=== PATIENT | male | born 1955 | race Caucasian/White ===

== ENCOUNTER 2020-02-28 23:17 | Emergency (ER) | payer MEDICARE, SELFPAY ==
--- NOTE | ~2020-02-28 | CT_ITS ---
EXAMINATION: CT abdomen pelvis w con DATE: 02/29/2020 00:23 INDICATION: Right lower abdominal pain. TECHNIQUE: Computed tomography (CT) of the abdomen and pelvis was performed with 100 mL Omnipaque 350 intravenous contrast. Automated exposure control and iterative reconstruction technique were employe d. The dose-length product was 659.72 mGy-cm. COMPARISON: None. FINDINGS: The visualized portions of the lung bases demonstrate mild dependent atelectasis. No pleura l effusion. The heart size is normal. No pericardial effusion. There is a small sliding hiatal hernia . There is fluid in the esophagus, which may be from reflux or esophageal dysmotility. The liver, gal lbladder, spleen, pancreas, and adrenal glands are normal. There is a 1 mm stone in right kidney. The re is mild right hydronephrosis. There is a 6 mm stone in proximal right ureter. There are cysts in l eft kidney measuring up to 5 mm. The prostate is mildly enlarged. There is a right inguinal hernia co ntaining fat. There is diverticulosis of the colon without evidence of diverticulitis. The appendix i s normal. There are no pathologically enlarged lymph nodes. There is no free intraperitoneal fluid. T here is lumbar levocurvature and mild spondylosis. IMPRESSION: 1. 6 mm stone in proximal right ureter with mild right hydronephrosis. 2. 1 mm nonobstructing right kidney stone. Reviewed, dictated and finalized at location A.
--- NOTE | ~2020-02-28 | XR_ITS ---
EXAMINATION: XR abdomen/kub 1V DATE: 02/29/2020 02:58 INDICATION: Right ureteral stone. TECHNIQUE: A supine view of the abdomen on 2 radiographs was obtained. COMPARISON: CT abdomen and pelvis 02/29/2020 FINDINGS: There are no dilated loops of bowel. There is a phlebolith in left pelvis. There is contras t in the kidneys, ureters, and bladder. There is mild right hydronephrosis. There is a 6 mm stone in proximal right ureter. IMPRESSION: 1. 6 mm stone in proximal right ureter with mild right hydronephrosis. Reviewed, dictated and finalized at location A.
[2020-02-28 23:23] VITALS: BP 171/85; PULSE 55; RESP 18; TEMP 36.4; O2SAT 97
[2020-02-28 23:32] VITALS: BP 145/99; PULSE 51; O2SAT 95
--- NOTE | 2020-02-28 23:39 | ED.ABDPAIN ---
HPI - Abdominal Pain General Chief Complaint: Abdominal Pain Stated Complaint: abd pain Time Seen by Provider: 02/28/20 23:22 Source: patient Mode of arrival: ambulatory Limitations: no limitations History of Present Illness HPI narrative: 64 yo male who presents with c/o right lower abdominal pain starting 7 pm tonight. He states his pain has been constant and progressively worsening. He has associated nausea and dizziness, but he denies fever, chills, urinary symptoms or cold symptoms. He took 2 extra strength tylenol 1 hour ago without any relief. He reports history of bilateral hernia repair but denies appendectomy in the past. MD elicited complaint: abdominal pain Onset (ago): hour(s) (4) Location: RLQ Severity: severe Radiation: none Exacerbating factors: nothing Relieving factors: nothing Associated symptoms: nausea Treatments prior to arrival: NSAIDs (1000 mg acetaminophen) Related Data Allergies Allergy/AdvReac Type Severity Reaction Status Date / Time Penicillins Allergy Hives Verified 02/28/20 23:30 Review of Systems Review of Systems: All systems reviewed & are unremarkable except as noted in HPI and below Constitutional: Constitutional: Denies chills, Denies fever(s) and Denies weakness Cardiovascular: Cardiovascular: Denies chest pain, Denies rapid heart rate and Denies slow heart rate Respiratory: Respiratory: Denies chest congestion, Denies cough, Reports dyspnea (chronic sob for several months that is being evaluation with pulmonary) and Denies wheezing Gastrointestinal: Gastrointestinal: Reports abdominal pain, Denies bloating, Denies constipation, Denies heartburn, Denies diarrhea, Reports nausea and Denies vomiting Genitourinary: Genitourinary: Denies hematuria, Denies oliguria, Denies dysuria, Denies testicular pain and Denies urinary frequency Musculoskeletal: Musculoskeletal: Denies back pain [facility] Surgical History Surgical History (Updated 02/28/20 @ 23:44 by Frida Walsh MD) H/O bilateral inguinal hernia repair Social History Social History (Updated 02/28/20 @ 23:44 by Frida Walsh MD) Smoking status: Former smoker Tobacco type: cigarettes Gender identity (if verbalized by the patient): Male Exam Const: General: alert Orientation/consciousness: patient oriented x3 Eyes: EOM: EOMs intact bilaterally Chest: Chest palpation & inspection: normal inspection of the chest Resp: Effort & Inspection: normal respiratory effort and no retractions Auscultation: clear to auscultation bilaterally Cardio: Rate: bradycardic Rhythm: regular rhythm Heart sounds: no murmurs GI: Inspection: non-distended GI Palp: Yes Soft to palpation, Yes Tenderness to palpation present (GI) (RLQ), No Rigid due to palpation and No Hernia present Auscultation: absent bowel sounds : General: Yes no CVA tenderness Back/Spine/Pelvis: Back: no CVA tenderness Skin: General skin exam: normal color Rashes: no rashes Neuro: General: patient oriented x3 and moves all extremities Course Reevaluation(s) Reevaluation #1: PAtient still reports pain 9/10 after 1 dose of morphine and 1 dose of dilaudid. I have discussed with patient finding of kidney stone as cause of his pain. Date: 02/29/20 Time: 01:20 Reevaluation #2: PAtient is comfortable in bed. He states his pain is controlled. He is comfortable with discharge home and plan. Date: 02/29/20 Time: 03:30 Consultations Consultation #1: I Discussed case with Dr. Zelaya who states patient can be sent home with pain medication and antibiotics. He will call patient this morning to get set up for outpatient lithotripsy. Date: 02/29/20 Time: 03:27 Vital Signs Vital signs: Vital Signs Temperature 97.5 F L 02/28/20 23:23 Pulse Rate 55 L 02/28/20 23:23 Respiratory Rate 18 02/28/20 23:23 Blood Pressure 171/85 H 02/28/20 23:23 Pulse Oximetry 97 02/28/20 23:23 Temperature 97.5 F L 02/28/20 23:23 Pulse Rate 61
[2020-02-28 23:52] LABS: Hematocrit 46.8 % (42.0-52.0); Hemoglobin 15.3 g/dL (14.0-18.0); Mean Corpuscular HGB Conc 32.7 g/dl (32-36); Mean Corpuscular Hemoglobin 29.1 pg (26-34); Mean Platelet Volume 10.6 fl (7.4-10.4); Platelet Count Result 219 k/mm3 (150-375); Red Blood Count 5.26 M/mm3 (4.6-6.20); Red Cell Distribution Width 12.4 % (11.5-14.5)
[2020-02-28] MEDS: MORPHINE SULFATE 4 MG/ML INJ IV PUSH (23:52)
[2020-02-28] MEDS: ONDANSETRON INJ 4 MG/2 ML VIAL IV PUSH (23:52)
[2020-02-28] MEDS: LACTATED RINGERS 1,000 ML 999 ML IV CONT (23:52)
[2020-02-29] VITALS (7 sets, daily range): BP systolic 119–163; BP diastolic 76–96; PULSE 55–74; RESP 11–16; O2SAT 94–98
[2020-02-29] LABS: Alanine Aminotransferase 33 U/L (4-50); Albumin Level 4.3 g/dL (3.5-5.1); Alkaline Phosphatase 66 U/L (38-126); Aspartate Amino Transferase 33 U/L (17-59); Bilirubin,Total 0.4 mg/dL (0.2-1.3); Blood Urea Nitrogen 19 mg/dL (9-20); Calcium 10.1 mg/dL (8.4-10.2); Carbon Dioxide 29 mmol/L (22-30); Chloride 102 mmol/L (98-107); Estimated CRCL calculation 67 ml/min; Estimated Glomerular Filt Rate > 60; Glucose 142 mg/dL (75-110); Lipase 56 U/L (23-300); Potassium 4.1 mmol/L (3.4-5.0); Sodium 138 mmol/L (137-145)
--- NOTE | 2020-02-29 00:06 | ECG_ITS ---
Measurements Intervals [place] Rate: 42 P: 44 [place]: 164 QRS: 18 QRSD: 102 T: 50 QT: 443 QTc: 371 Interpretive Statements SINUS BRADYCARDIA ABNORMAL ECG Electronically Signed On 02-29-2020 7:21:20 CDT by Ze Zendejas D.O.
[2020-02-29] MEDS: HYDROMORPHONE HCL 1 MG/ML INJ IV PUSH ×2 (00:45→01:38)
--- NOTE | 2020-02-29 00:57 | PC.NURSE ---
attempted to straight catheterize pt for urine sample without success at this time. 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
[2020-02-29 01:01] LABS: Lymphocytes Absolute Manual 2.08 K/mm3 (1.1-4.5); Monocytes Absolute Manual 0.65 K/mm3 (0.1-0.90); Monocytes Percent Manual 5 % (3-9); Neutrophils Percent Manual 79 % (46-73); Platelet Estimate Adequate (Adequate); Total Cells Counted 100
[2020-02-29] MEDS: LACTATED RINGERS 1,000 ML 999 ML IV CONT (01:40)
[2020-02-29] MEDS: TAMSULOSIN HCL 0.4 MG CAPSULE PO (01:45)
[2020-02-29 03:02] LABS: Add Urine Microscopic? YES; Appearance Urine Clear (Clear); Bacteria Urine Trace /hpf; Bilirubin Urine Negative (Negative); Blood Urine 2+ (Negative); Color Urine Straw (Yellow); Glucose Urine UA Negative (Negative); Ketones Urine Negative (Negative); Leukocyte Esterase Ur Trace LEU/UL (Negative); Mucus Urine Rare /lpf; Nitrate Urine Negative (Negative); Protein Urine Negative (Negative); RBC Urine 51-75 /hpf (0-2); Urobilinogen Urine Negative mg/dL (<2.0)
== END 2020-02-29 03:40 | disposition home or self-care (01) ==
PROVIDERS: Emergency Provider General Practice
DX: N13.2 Hydronephrosis with renal and ureteral calculous obstruction (principal); Z87.891 Personal history of nicotine dependence
CPT/HCPCS: 36415; 51701; 74018; 74177; 80053; 81001; 83690; 85025; 87086; 93005; 96361; 96365; 96375; 96376; 99284; A9270; J0131; J1170; J2270; J2405; J7120; Q9967

== ENCOUNTER 2020-03-26 14:13 | Outpatient (CLI) | payer MEDICARE, SELFPAY ==
--- NOTE | ~2020-03-26 | XR_ITS ---
EXAMINATION: XR abdomen/kub 1V EXAM DATE: 03/26/2020 14:40 INDICATION: Right ureteral stone. TECHNIQUE: Frontal projection(s) of the abdomen for interpretation. Comparison is made to prior exami nation from 02/29/2020. FINDINGS: Can't identify the sizable right proximal ureteral stone identified on CT scan on 0. There is stool overlying the renal contours. Nonobstructive bowel gas pattern. There are mild bony degenerative changes. IMPRESSION: No suspicious calcifications identified. Reviewed, dictated and finalized at location A.
== END 2020-03-26 14:14 | disposition home or self-care (01) ==
PROVIDERS: Visit Provider Urology
DX: N20.1 Calculus of ureter (principal)
CPT/HCPCS: 74018

== ENCOUNTER 2020-11-12 13:52 | Outpatient (CLI) | payer MEDICARE, SELFPAY ==
--- NOTE | ~2020-11-12 | XR_ITS ---
EXAMINATION: XR abdomen/kub 1V INDICATION: Right ureteral stone TECHNIQUE: Supine views of the abdomen were obtained on 2 radiographs. COMPARISON: 03/26/2020 FINDINGS: Bowel contents project over the kidneys limiting sensitivity for renal stones. No definite urolithiasis is identified. There are phleboliths of the pelvis. Prostatic calcifications are noted. There is mild osteoarthritis of the hips. IMPRESSION: 1. No definite urolithiasis identified. Reviewed, dictated and finalized at location A. ONAL INJURY PARALEGAL
== END 2020-11-12 13:53 | disposition home or self-care (01) ==
LOC: ANHIMG 13:59
PROVIDERS: PCP Internal Medicine; Visit Provider Urology
DX: N20.1 Calculus of ureter (principal)
CPT/HCPCS: 74018

== ENCOUNTER 2022-12-16 12:50 | Emergency (ER) | payer MEDICARE, SELFPAY ==
--- NOTE | ~2022-12-16 | XR_ITS ---
EXAM: XR abdomen/kub 1V DATE: 12/16/2022 17:34 HISTORY: renal stone protocol . COMPARISON: CT abdomen and pelvis, same date. FINDINGS: Round opacification projecting over the left iliac wing, with no correlate in the concurre nt CT, likely artifact. Normal bowel gas pattern. No organomegaly. Delayed right nephrogram. Several calcific densities project over the right sacrum likely representing the previously detected distal u reteral stones and adjacent vascular calcification. Degenerative lumbar disc disease. Mild bilateral hip osteoarthritis. IMPRESSION: Delayed right nephrogram. Distal right ureteral stones. Please also refer to the concurre nt CT abdomen and pelvis for additional details.. Reviewed, dictated and finalized at location K. IE PADDER IMPRESSION: Delayed right nephrogram. Distal right ureteral stones. Please also refer to the concurrent CT abdomen and pelvis for additional details..
--- NOTE | ~2022-12-16 | CT_ITS ---
EXAMINATION: CT abdomen pelvis w con INDICATION: Right lower quadrant pain TECHNIQUE: Computed tomographic images of the abdomen and pelvis were obtained after the administrati on of 100 cc of Omnipaque 350 intravenous contrast. The dose-length product (DLP) was 677.97 mGy-cm. Automated exposure control and iterative reconstruction technique were employed. COMPARISON: 02/29/2020 FINDINGS: Minimal dependent atelectasis is present in the lung bases. The heart size is normal. The s tomach is moderately distended with fluid with reflux of gastric contents into the visualized distal esophagus. The liver, spleen, pancreas, gallbladder, and adrenal glands are normal. There are at leas t three right mid ureteral stones which measure up to 4 mm which cause moderate right hydroureteronep hrosis. There is reduced enhancement of the right kidney when compared to the left with surrounding p erinephric stranding. There is a 4 mm nonobstructing stone of the right kidney lower pole. There is a 9 mm cyst of the left kidney lower pole. There is calcified atherosclerosis of the aorta and many of the other arteries. No pathologically enlarged abdominal or pelvic lymph nodes are identified. There is no free intraperitoneal gas or evidence of bowel obstruction. Colonic diverticulosis is present w ithout evidence of diverticulitis. There is an approximately 2.1 x 0.8 cm area of soft tissue attenua tion wall thickening of the posterior urinary bladder near the left ureterovesicular junction. There is a right inguinal hernia containing fat. There are appendicoliths in the nondistended appendix. IMPRESSION: 1. At least three stones of the right mid ureter, measuring up to 4 mm, and causing moderate right hy droureteronephrosis. Decreased enhancement of the right kidney compared to the left and surrounding p erinephric stranding could reflect superimposed pyelonephritis. 2. Soft tissue attenuation mass of the left posterolateral bladder wall near the left ureterovesicula r junction concerning for urothelial carcinoma. Urologic evaluation and direct visualization are migel mmended. 3. Moderate distention of the stomach with fluid and reflux of gastric contents into the visualized d istal esophagus. Reviewed, dictated and finalized at location L. LE AND HEEL STIFFENER IMPRESSION: 1. At least three stones of the right mid ureter, measuring up to 4 mm, and cau sing moderate right hydroureteronephrosis. Decreased enhancement of the right k idney compared to the left and surrounding perinephric stranding could reflect superimposed pyelonephritis. 2. Soft tissue attenuation mass of the left posterolateral bladder wall near th e left ureterovesicular junction concerning for urothelial carcinoma. Urologic evaluation and direct visualization are recommended. 3. Moderate distention of the stomach with fluid and reflux of gastric contents into the visualized distal esophagus.
[2022-12-16 13:02] VITALS: BP 148/50; PULSE 54; RESP 16; TEMP 37.2; O2SAT 96
[2022-12-16 13:17] LABS: Basophils Percent Auto 0.4 % (0.2-1.2); Eosinophils Percent Auto 0.3 % (0-4.4); Hematocrit 46.7 % (42.0-52.0); Hemoglobin 15.6 g/dL (14.0-18.0); Immature Granulocyte Absolute 0.05 K/mm3 (0.00-0.031); Immature Granulocyte Percent A 0.5 % (0-0.5); Lymphocytes Absolute Auto 1.24 K/mm3 (0.9-3.2); Lymphocytes Percent Auto 11.2 % (18.3-44.2); Mean Corpuscular HGB Conc 33.4 g/dl (32-36); Mean Corpuscular Hemoglobin 29.7 pg (26-34); Mean Platelet Volume 10.5 fl (7.4-10.4); Monocytes Absolute Auto 0.4 K/mm3 (0.1-0.6); Monocytes Percent Auto 3.5 % (2.6-8.5); Neutrophils Absolute Auto 9.4 K/mm3 (1.3-6.7); Neutrophils Percent Auto 84.1 % (45.5-73.1); Platelet Count Result 241 k/mm3 (150-375); Red Blood Count 5.25 M/mm3 (4.6-6.20); Red Cell Distribution Width 12.7 % (11.5-14.5); White Blood Count 11.1 K/mm3 (4.5-10.0)
[2022-12-16 13:28] LABS: Alanine Aminotransferase 35 U/L (6-50); Albumin Level 4.2 g/dL (3.5-5.1); Alkaline Phosphatase 112 U/L (38-126); Anion Gap 8 mmol/L (8-16); Aspartate Amino Transferase 32 U/L (17-59); Bilirubin,Total 0.7 mg/dL (0.2-1.3); Blood Urea Nitrogen 22 mg/dL (9-20); Carbon Dioxide 26 mmol/L (22-30); Chloride 105 mmol/L (98-107); Estimated CRCL calculation 55 ml/min; Estimated Glomerular Filt Rate 60; Glucose 160 mg/dL (65-110); Lipase 68 U/L (23-300); Potassium 4.3 mmol/L (3.4-5.0); Sodium 139 mmol/L (137-145)
--- NOTE | 2022-12-16 14:04 | ED.ABDPAIN ---
HPI - Abdominal Pain General Chief Complaint: Abdominal Pain Stated Complaint: abdominal pain Time Seen by Provider: 12/16/22 14:03 Source: patient and family Mode of arrival: ambulatory Limitations: no limitations History of Present Illness HPI narrative: Patient is a 66-year-old male presenting to the emergency department for evaluation of right lower quadrant abdominal pain. Pain is aching, sharp in nature located in the right lower quadrant without radiation to the flank. Patient denies radiation of the pain into the testicle, denies penile pain. He denies hematuria or dysuria, but does report hesitancy and mild frequency. Patient denies fever, chills, nausea or vomiting. Denies rash or lesions overlying the right flank or back. He denies diarrhea or constipation. Patient reports pain was intermittent over last night before becoming more severe this morning. Pain is moderate in intensity. Patient denies any associated chest pain, upper back pain, cough, shortness of breath. Per chart review, patient does have a history of nephrolithiasis in 2019, ultimately treated with lithotripsy. Patient states that he has not had any recurrent problems with kidney stone since that initial diagnosis. History was obtained from the patient. Reviewed the patient's ER visit from 2019 with diagnosis of renal colic. Related Data Allergies Allergy/AdvReac Type Severity Reaction Status Date / Time Penicillins Allergy Hives Verified 12/16/22 15:06 Review of Systems Review of Systems: CONSTITUTIONAL: Denies fever, chills, or sweats. EYES: Denies visual changes, redness, or discharge. ENT: Denies rhinorrhea, congestion, sore throat, or otalgia. CARDIOVASCULAR: Denies chest pain, palpitations, or edema. RESPIRATORY: Denies cough or dyspnea. GASTROINTESTINAL: Reports right lower quadrant abdominal pain, denies flank pain, denies nausea or vomiting GENITOURINARY: Denies dysuria or hematuria. Reports mild frequency and hesitancy. SKIN: Denies rash or itching. MUSCULOSKELETAL: Denies back pain, joint pain, or myalgia. NEUROLOGIC: Denies headache, numbness, or weakness. [facility] Past Medical History Medical History (Updated 12/16/22 @ 17:57 by Jessica Silva MD) Nephrolithiasis Renal colic on right side Surgical History Surgical History H/O bilateral inguinal hernia repair Social History Social History Smoking status: Former smoker Tobacco type: cigarettes Gender identity (if verbalized by the patient): Male Exam Narrative: GENERAL: Awake, alert, conversant, uncomfortable appearing HEAD: Normocephalic, atraumatic. EYES: PERRLA and EOMI. ENT: Nares clear, no rhinorrhea or epistaxis. Mucous membranes moist. NECK: Supple. CHEST: No respiratory distress, breathing even and non labored HEART: Mildly Bradycardic rate, sinus rhythm ABDOMEN:Non distended, non tender, right lower quadrant tenderness on exam without rebound, rigidity or guarding, no flank tenderness bilaterally EXTREMITIES: Normal range of motion. No edema. SKIN: Warm, dry, no rash. NEURO:No focal deficits. Alert and oriented x3 Course Vital Signs Vital signs: Vital Signs Temperature 37.2 C 12/16/22 13:02 Pulse Rate 54 L 12/16/22 13:02 Respiratory Rate 16 12/16/22 13:02 Blood Pressure 148/50 H 12/16/22 13:02 Pulse Oximetry 96 12/16/22 13:02 Oxygen Delivery Room Air 12/16/22 13:02 Temperature 37.2 C 12/16/22 13:02 Pulse Rate 55 L 12/16/22 15:17 Respiratory Rate 14 12/16/22 15:17 Blood Pressure 163/99 H 12/16/22 15:17 Pulse Oximetry 99 12/16/22 15:17 Oxygen Delivery Room Air 12/16/22 13:02 MDM - Abdominal Pain MDM Narrative Medical decision making narrative: Patient presented to the emergency department for evaluation of right-sided lower abdominal pain. At time of assessment, patient is uncomfortable appear
[2022-12-16] MEDS: SODIUM CHLORIDE 0.9% IV 1,000 ML 999 ML IV CONT (15:07)
[2022-12-16] MEDS: MORPHINE SULFATE (*CRX) 4 MG/ML INJ IV PUSH (15:08)
[2022-12-16] MEDS: ONDANSETRON INJ 4 MG/2 ML VIAL IV PUSH (15:08)
[2022-12-16 15:17] VITALS: BP 163/99; PULSE 55; RESP 14; O2SAT 99
[2022-12-16] MEDS: HYDROmorphone HCL INJ (*CRX) 1 MG/ML SYR IV PUSH (16:24)
[2022-12-16 17:28] LABS: Appearance Urine Clear (Clear); Bilirubin Urine Negative (Negative); Blood Urine 2+ (Negative); Color Urine Yellow (Yellow); Glucose Urine UA Negative (Negative); Ketones Urine Negative (Negative); Leukocyte Esterase Ur Negative LEU/UL (Negative); Nitrate Urine Negative (Negative); Protein Urine Negative (Negative); Specific Grav Ur 1.015 (1.001-1.035); Urobilinogen Urine 0.2 mg/dL (<2.0)
[2022-12-16 17:36] LABS: Mucus Urine Rare /lpf; RBC Urine 51-75 /hpf (0-2); Squamous Epithelial Cell Urine Rare /hpf (Few)
[2022-12-16 17:37] LABS: Add Urine Microscopic? YES
[2022-12-16] MEDS: KETOROLAC 15 MG/ML VIAL (*BKC) IV PUSH (17:55)
[2022-12-16 18:07] VITALS: BP 147/102; PULSE 72; RESP 17; O2SAT 96
[2022-12-16 18:07] LABS: SARS-CoV-2 RNA PCR Negative
== END 2022-12-16 18:08 | disposition home or self-care (01) ==
PROVIDERS: Emergency Medicine; Emergency Provider Emergency Medicine; PCP Internal Medicine
DX: N13.2 Hydronephrosis with renal and ureteral calculous obstruction (principal); N32.89 Other specified disorders of bladder; Z20.822 Contact with and (suspected) exposure to COVID-19; Z87.442 Personal history of urinary calculi; Z87.891 Personal history of nicotine dependence
CPT/HCPCS: 36415; 74018; 74177; 80053; 81001; 83690; 85025; 96361; 96374; 96375; 99284; J1170; J1885; J2270; J2405; J7030; Q9967; U0003; U0005

== ENCOUNTER 2022-12-17 11:26 | Outpatient (CLI) | payer MEDICARE, SELFPAY ==
--- NOTE | ~2022-12-17 | XR_ITS ---
EXAMINATION: XR abdomen/kub 1V DATE: 12/17/2022 13:00 INDICATION: Right ureteral stone. TECHNIQUE: A supine view of the abdomen on 2 radiographs was obtained. COMPARISON: CT abdomen and pelvis 12/16/2022 FINDINGS: There are no dilated loops of bowel. There is a persistent right-sided contrast nephrogram. There is mild right hydronephrosis and hydroureter. There is contrast in the bladder. There are phle boliths in the pelvis. IMPRESSION: 1. Mild right hydronephrosis and hydroureter. Reviewed, dictated and finalized at location A. LATORY ASSISTANT
== END 2022-12-17 11:27 | disposition home or self-care (01) ==
PROVIDERS: PCP Internal Medicine; Visit Provider Urology
DX: N20.1 Calculus of ureter (principal)
CPT/HCPCS: 74018

== ENCOUNTER 2022-12-18 12:47 | Day surgery (SDC) | payer MEDICARE, SELFPAY ==
[2022-12-18] VITALS (7 sets, daily range): BP systolic 102–140; BP diastolic 68–84; PULSE 60–77; RESP 12–16; TEMP 36.4–37.1; O2SAT 97–99; BMI 28.0
--- NOTE | ~2022-12-18 | XR_ITS ---
EXAMINATION: XR stent kub - surgery DATE: 12/18/2022 16:07 INDICATION: Right internal ureteral stent placement TECHNIQUE: Fluoroscopic images from a right internal ureteral stent placement are submitted for roseann wade 36 seconds of fluoroscopy time. FINDINGS: There is a right double-J internal ureteral stent projecting in expected position, with proximal [place] loop at the level of the renal pelvis and distal loop in the pelvis within the bladder lumen. IMPRESSION: 1. Right internal ureteral stent placement. Please refer to real-time procedural findings for detytrel ls. Reviewed, dictated and finalized at location A. M CLOTHES PRESS OPERATOR IMPRESSION: 1. Right internal ureteral stent placement. Please refer to real-time procedu ral findings for details.
--- NOTE | 2022-12-18 08:08 | PC.NURSE ---
Report to the Outpatient Waiting Room, entrance under the green pavilion located off [facility], at time _130pm_ on date _[id number]_. Planned Procedure Time: _330pm_. Time changes happen often and if your time is changed the preop area will call you the afternoon before. - You and your visitor will be asked to self-screen and do not enter if you have any COVID symptoms. - Only one visitor is requested with a max of two and NO children visitors are allowed at this time. - The patient visitor may be requested to leave or wait in car when not with patient due to distancing restrictions. - A mask is optional within the hospital at this time. Patients may have clear liquids (water, carbonated beverages, clear teas, apple juice) until 3 hours prior to surgery with a maximum of 20 ounces. - No food from midnight until time of surgery Take the following medications with a SIP of water the morning of surgery: Pain med if needed. DO NOT STOP ANY OF YOUR OTHER PRESCRIPTION MEDICATIONS PRIOR TO SURGERY ?EXCEPT THE FOLLOWING Medications to discontinue per physician Date to take last dose Please no make-up, nail north k[place], hairspray, perfume, deodorant, or body powder the day of surgery. No jewelry (including any body piercings) or valuables the day of surgery, leave them at home. Please take a shower or bath the night before, or the morning of, surgery with an antibacterial soap. Wear comfortable, loose fitting clothing. - Jewelry must be removed prior to entering the operating room. Rings and piercings that are not removed may be cut off. - The hospital will not accept responsibility for valuables. - Please leave all valuables, including medications, at home the day of surgery. If you are going home after surgery, a licensed cryogenic transport driver must drive you home. - NO public transportation without another adult if you receive anesthesia. - We recommend that an adult stay with you for 24 hours following discharge. - We also recommend that you do not drive, make important decision, drink alcoholic beverages, or take any drugs that were not prescribed by your health care provider for at least 24 hours after your discharge time. Follow any additional instructions given to you from your surgeon. If you or anyone in your household have experienced Covid symptoms in the past week, please notify your surgeon or the nurse liaison at the phone number below for possible testing. Telephone instructions given to ___Patient__and asked if any additional questions and then verbalized understanding. Patient advised to call surgeon office or pre surgery nurse liaison [phone] if any additional questions.
--- NOTE | 2022-12-18 11:07 | P.PNAN_ITS ---
Anes - Initial Pre Proc Eval Procedure: Operation Date: 12/18/22 15:30 Proposed Procedures p Cystoscopy, Right Ureteroscopy, Possible Right Retrograde Pyelogram, Possible Right Stone Extraction, Possible Right Stent Placement, Possible Holmium Laser Procedure - Alex Zelaya MD Date/Time: 12/18/22 11:07 Surgeon: Alex Zelaya MD Pre Op Diagnosis: right ureteral stone Patient Data Age: 66 Gender: M Height: 1.78 m Weight: 88.6 kg Allergies Allergy/AdvReac Type Severity Reaction Status Date / Time Penicillins Allergy Intermediate Hives Verified 12/18/22 12:35 Home Medications Medication Instructions Recorded Confirmed Type ondansetron HCl 4 mg tablet 4 mg PO Q6H PRN nausea and 02/29/20 12/18/22 Rx (Zofran) vomiting #10 tabs oxycodone-acetaminophen 5 mg-325 1 tablet PO Q6H PRN pain #10 tabs 02/29/20 Rx mg tablet (Percocet) sulfamethoxazole 800 1 tablet PO Q12H #14 tabs 02/29/20 Rx mg-trimethoprim 160 mg tablet (Bactrim DS) acetaminophen 500 mg capsule 1,000 mg PO Q6H PRN fever or pain 12/16/22 Rx 15 days #30 caps oxycodone 5 mg capsule 5 mg PO Q8H PRN pain 6 days #20 12/16/22 12/18/22 Rx caps tamsulosin 0.4 mg capsule (Flomax) 0.4 mg PO DAILY #30 caps 12/16/22 12/18/22 Rx aspirin 81 mg tablet 81 mg PO DAILY 12/18/22 12/18/22 History atorvastatin 20 mg tablet mg 12/18/22 History Patient hx anesthesia problems: none Family hx anesthesia problems: none Results Review: All pre-operative results and documents have been reviewed as part of the pre- operative evaluation. [facility] Past Medical History Medical History (Updated 12/18/22 @ 11:07 by Jaxon Kaur DO) COPD (chronic obstructive pulmonary disease) Nephrolithiasis Renal colic on right side Surgical History Surgical History H/O bilateral inguinal hernia repair Social History Social History Smoking packs per day: 2 Smoking cigarettes per day: 40.0 Years smoked: 50 Smoking pack-years: 100.00 Smoking status: Former smoker Tobacco type: cigarettes Smoking end date: 12/18/19 Living arrangements: with family Gender identity (if verbalized by the patient): Male Spiritual care concerns: No Anes - Eval Final PreProcedure Day of Procedure 12/18/22 11:07 Patient weight: overweight Heart: regular rate and rhythm Lungs: clear to auscultation Airway: Mallampati scale class II Neurological: alert and oriented Last oral intake: >/= 8 hours ASA classification: III Emergent: no Anesthetic plan: proceed Anesthesia type and monitoring: general LMA and standard monitoring Results Review: All pre-operative results and documents have been reviewed as part of the pre- operative evaluation. Informed Consent: The patient's anesthetic plan and its attendant risks and benefits were discussed with the patient/family/POA. Questions were solicited and answers provided to the satisfaction of the patient/family/POA.
--- NOTE | 2022-12-18 12:40 | ECG_ITS ---
Measurements Intervals [place] Rate: 80 P: 66 [place]: 181 QRS: 4 QRSD: 93 T: 51 QT: 345 QTc: 398 Interpretive Statements SINUS RHYTHM NORMAL ECG COMPARED TO ECG 02/29/2020 00:06:24 SINUS RHYTHM NOW PRESENT Electronically Signed On 12-18-2022 14:02:33 PMO MANAGER by Hardeep Dominique M.D.
[2022-12-18] MEDS: LACTATED RINGERS 1,000 ML 30 ML IV CONT (13:13)
[2022-12-18] MEDS: FAMOTIDINE 20 MG/2 ML VIAL IV PUSH (14:43)
--- NOTE | 2022-12-18 15:09 | WPDHPUPDATE1 ---
History and Physical Update Update Date/Time: 12/18/22 15:09 History and Physical has been reviewed, including an updated exam of the patient. There are NO changes in the patient's condition. Risks, benefits, and alternatives have been discussed and questions answered. Patient agrees to proceed with procedure.
[2022-12-18] MEDS: ceFAZolin 2 GM/D5W 50 ML 2 GM/50 ML BAG IVPB (15:13)
[2022-12-18] MEDS: KETOROLAC 15 MG/ML VIAL (*BKC) IV PUSH (15:42)
--- NOTE | 2022-12-18 15:53 | W.PM.PROC2 ---
Procedure Note - Detailed Date of Procedure 12/18/22 Pre-op Diagnosis Right ureteral stone Post-op Diagnosis Same Procedure Performed Cystoscopy, right ureteroscopy with laser lithotripsy, stone extraction and stent placement Surgeon Alex Zelyaa MD Anesthesia General Description of Procedure patient is brought to the operative suite where he was prepped and draped in routine sterile fashion in a dorsal lithotomy position after the uneventful induction of a general LMA anesthetic. Has a hypospadias that I had to dilate from 18-22 F in order to place a 19 F rigid cystoscope. The remainder of urethra was normal without strictures or other pathology. His very moderate prostatic hyperplasia with predominantly lateral lobe enlargement. The bladder is slightly trabeculated. There was no intravesical foreign body or neoplasm. Has a single orthotopic ureteral orifice. A 0.035 in glidewire was advanced into the right collecting system under fluoroscopy. The distal ureter was dilated with an 8 F 10 F dilator. Ureteroscopy was undertaken with a short taper semi-rigid ureteral scope is a fairly large impacted stone in the distal right ureter and a couple smaller stones behind it. The fractured using a 200 micron holmium laser fiber. All fragments were evacuated or removed with a 1.9 F disposable stone basket. I did place a 4.8 F variable length ureteral stent with the proximal coil in the renal pelvis and distal coil in the bladder. This can come out in 7-10 days Drains Yes Pathology Yes Complications No immediate complications
== END 2022-12-18 17:35 | disposition home or self-care (01) ==
PROVIDERS: PCP Internal Medicine; Visit Provider Urology
PROC: (CPT 52352; principal; 2022-12-18 15:30)
DX: N20.1 Calculus of ureter (principal); J44.9 Chronic obstructive pulmonary disease, unspecified; Z87.891 Personal history of nicotine dependence; Z79.82 Long term (current) use of aspirin
CPT/HCPCS: 52356; 82365; 88300; 93005; A9270; C1769; C2617; J0690; J1100; J1885; J2250; J2405; J2704; J3010; J7120

== ENCOUNTER → 2023-08-18 09:27 | Outpatient (CLI) | payer MEDICARE, SELFPAY ==
--- NOTE | ~2023-08-18 | XR_ITS ---
EXAMINATION: XR abdomen/kub 1V INDICATION: Calculus of the ureter TECHNIQUE: Supine views of the abdomen were obtained on 2 radiographs. COMPARISON: 12/17/2022 FINDINGS: Bowel contents project over the kidneys limiting sensitivity for renal stones. No urolithia sis is identified. There are phleboliths of the pelvis. There are calcifications of the prostate. The bowel gas pattern is normal. The visualized lung bases are clear. IMPRESSION: 1. No urolithiasis identified. Reviewed, dictated and finalized at location A.
== END ==
PROVIDERS: PCP Urology; Visit Provider Urology
DX: N20.1 Calculus of ureter (principal)
CPT/HCPCS: 74018